=== PATIENT | female | born 1985 | race Hispanic/Latino ===

== ENCOUNTER 2025-10-29 10:55 | Emergency (ER) | payer SELFPAY ==
[2025-10-29] MEDS ORDERED: Acetaminophen 325 MG TAB ONE (11:18)
[2025-10-29] MEDS ORDERED: cefTRIAXone (ROCEPHIN) 2 GM VIAL ONE (13:15)
[2025-10-29] MEDS ORDERED: Azithromycin 250 MG TAB ONE (13:15)
== END 2025-10-29 13:50 | disposition home or self-care (01) ==
LOC: NAV ERS 10:55
DX: J18.9 Pneumonia, unspecified organism (principal); E11.9 Type 2 diabetes mellitus without complications; I10 Essential (primary) hypertension; F17.210 Nicotine dependence, cigarettes, uncomplicated; Z71.6 Tobacco abuse counseling
CPT/HCPCS: 71046; 87428; 96365; J0696; J7030